=== PATIENT | male | born 1950 | race Caucasian/White ===

== ENCOUNTER 2018-03-12 11:47 | Day surgery (SDC) | payer MEDICARE ==
[~2018-03-12] VITALS: Ht 170.2 cm; Wt 73.9 kg
--- NOTE | ~2018-03-12 | OP ---
PATIENT NAME: BELLE MOTA MEDICAL RECORD: [id number] :52 LOCATION:D.OPS ADMISSION DATE: SURGEON: SUKHWINDER FOSTER MD DATE OF OPERATION: 03/12/2018 PREOPERATIVE DIAGNOSIS: A 5 cm rectal polyp of the rectum. POSTOPERATIVE DIAGNOSES: A 5 cm rectal polyp of the rectum with 2 additional polyps, both appeared to be adenomatous. One was located in the cecum and was 5 x 5 mm. The other was larger and was somewhat pedunculated and measured 1.8 cm. Severe left-sided diverticulosis. PROCEDURES: 1. Total colonoscopy to cecum. 2. Polypectomy utilizing the endoscopic mucosal resection technique (EMR) of the 5 cm polyp, which was located 10 cm from the anus. 3. Hot biopsy forceps polypectomies times 2. 4. Argon plasma coagulation therapy to the area around the polyp at 10 cm. 5. Placement of 3 endoscopic clips at the polypectomy site at 10 cm. SURGEON: Sukhwinder Foster MD CUSTOMER SUPPORT ENGINEER: None. BLOOD LOSS: Minimal. ANESTHESIA: General. COMPLICATIONS: None. The risks, possible complications and alternatives to procedure were explained to the patient. He elects to proceed. The discussion specifically included, but was not limited to, bleeding requiring emergency reoperation, infection, endoscopic perforation. OPERATIVE COURSE: The patient was conveyed to the operating room electively on 03/12/2018. General anesthesia was induced by the anesthesia staff. The patient was placed in the Lopez position. He was noted to have hypopigmentation of the anus and perineum as well as some degree of anal stenosis. A digital rectal examination was performed after he was placed in the Lopez position. A colonoscope was inserted through the anus. It was easily advanced to the cecum. It is likely due to the excellent prep, but I was able to identify 2 additional polyps. One was located in the cecum and it was removed utilizing the hot biopsy forceps polypectomy technique. I slowly withdrew the endoscope. The pullback was greater than 23-minute pullback. I dragged the folds. A combination of normal imaging and narrow band imaging were utilized. A secondary polyp was noted and it was removed utilizing the hot biopsy forceps polypectomy technique. In the rectum, I retroflexed. I then unretroflexed the scope. The pedunculated polyp 10 cm was noted. At the base of the polyp, I injected epinephrine for postprocedural hemostasis. I then injected 10 cc of Eleview through a sclerotherapy needle. I then advanced an endoscopic snare. The polyp was removed in a piecemeal fashion utilizing the snare twice. OPERATIVE REPORT [id number] SVETLANABELLE There was a tiny rim of residual polypoid tissue at the polypectomy site. This was ablated utilizing the argon plasma dietist utilizing the right colon setting in the forced mode. An endoscopic retrieval net was advanced and I was able to retrieve both portions of the polyp. I then readvanced the endoscope. As I had to go kind of deep in order to remove the polyp in its entirety, I wanted to reinforce the polypectomy site at 10 cm. I did this with the application of 3 endoscopic clips in a row. The endoscope was then withdrawn under direct vision. As the patient is going to be at risk for post-polypectomy syndrome, the patient will be dismissed home on Flagyl 500 mg #14, 1 p.o. q.12 hours. I will see the patient in my office in 2-3 weeks. TRANSINT:[id number] Voice Confirmation ID: [id number] DOCUMENT ID: [id number] SUKHWINDER FOSTER MD at 2121 CC: LUIS ENRIQUE FAITH KETCHER, BRENDA and ADRI BARRAGAN MD [id number] DICTATION DATE: 03/12/18 1446 TRANSFER WORKER: 03/12/18 1535 [facility] 03/12/18 [place] [id number] [place] [address]
[2018-03-12 09:32] LABS: HEMATOCRIT 47.3 % (42.0-54.0); HEMOGLOBIN 16.5 g/dL (13.5-17.5); MCH 32.4 pg (26.0-34.0); MCHC 34.9 g/dL (31.0-37.0); MCV 92.9 fL (80.0-100.0); MEAN PLATELET VOLUME 10.3 fL (7.4-10.4); RBC 5.09 10x6/uL (4.20-6.10); RDW 14.2 % (11.5-14.5); WBC 11.3 10x3/uL (4.8-10.8)
[2018-03-12 10:29] VITALS: BP 108/74; Ht 170.2 cm; Wt 73.9 kg
[~2018-03-12 11:47] MED LIST: CRESTOR40 MG PO; PRINIVIL20 MG PO; ZYLOPRIM300 MG PO
== END 2018-03-12 16:06 | disposition home or self-care (01) ==
LOC: D.OPS 11:47 → D.PAN 12:00 → D.OPS 16:06
PROVIDERS: Anesthesiology
DX: D37.5 Neoplasm of uncertain behavior of rectum (principal); D12.0 Benign neoplasm of cecum; D12.4 Benign neoplasm of descending colon; K57.30 Diverticulosis of large intestine without perforation or abscess without bleeding; Z01.812 Encounter for preprocedural laboratory examination

== ENCOUNTER → 2018-09-21 08:03 | Outpatient (CLI) | payer MEDICARE ==
[2018-03-12 10:29] VITALS: BMI 25.6
--- NOTE | 2018-09-28 14:26 | EC ---
PATIENT:BELLE MOTA DATE OF SERVICE: 09/21/18 SEX: M MEDICAL RECORD: [id number] DATE OF : 52 LOCATION:D.[facility] AGE OF PATIENT: 68 ADMISSION DATE: 09/21/18 REFERRING PHYSICIAN: INTERPRETING PHYSICIAN: ADRI BARRAGAN MD ECHOCARDIOGRAM REPORT ECHO CHARGES 4 ECHO COMPLETE Date: 09/21/18 CLINICAL DIAGNOSIS: MURMUR H/O CAD/CABG/HTN ECHOCARDIOGRAPHIC MEASUREMENTS (adult normal given) AC root (d.<3.7cm) 3.5 cm LV Septum d (<1.2 cm> 0.9 cm Valve Excursion 2.1 cm LV Septum (systole) 1.3 cm Left Atria (s.<4.0cm> 4.3 cm LVPW d(<1.2cm) 1.0 cm RV (d.<2.3cm) 2.6 cm LVPW (sytole) 1.2 cm LV diastole(<5.6CM) 3.5 cm MV E-F(>70mm/sec) cm LV systole 2.3 cm LVOT Diameter 1.9 cm MV exc.(>10mm) cm Est.ejection fraction (50-75%) % DOPPLER: LVIT cm/sec A 69.0 cm/sec E 50.0 cm/sec LA cm/sec RVSP 17.0 mmHg LVOT 106 cm/sec AOP1/2T m/s Asc. Ao 104 cm/sec RVOT 80.0 cm/sec RA cm/sec PA 100 cm/sec AV Gradient Peak 4.3 mmHg AV Mean 2.2 mmHg AV Area 2.8 cm MV Gradient Peak 3.0 mmHg MV Mean 1.2 mmHg MV Area cm COMMENTS: OP - HC Test Clerk: João LEE DEYSI Refinisher: 3 Dr. Wilkins TAPE# PACS Pericardial Effusion N DATE OF SERVICE: 09/21/2018 Adequate 2-D, color-flow and spectral Doppler, and M-mode. No LVH. LV internal dimension is normal. Wall motion is normal. EF is greater than or equal to 55%. Aortic valve sclerosis without stenosis by Doppler interrogation. The left atrium is mildly dilated at 4.3 cm. Mitral valve is thickened. Trace MR. Right-sided chamber is grossly normal. Trace TR. TRANSINT:[id number] Voice Confirmation ID: [id number] DOCUMENT ID: [id number] ECHOCARDIOGRAM REPORT [id number] BELLE MOTA,ADRI Auguste MD at 1426 CC: [id number] DICTATION DATE: 09/22/18 1259 AIRPLANE PILOT HELPER: 09/22/18 1429 DEP CLI 09/21/18 [place] [id number] [place] [id number]
== END | disposition home or self-care (01) ==
LOC: D.HCCARDIO 08:03
PROVIDERS: ATTEND Internal Medicine Interventional Cardiology
DX: R01.1 Cardiac murmur, unspecified (principal)

== ENCOUNTER 2019-03-15 05:39 | Outpatient (CLI) | payer MEDICARE ==
[~2019-03-15] VITALS: Ht 170.2 cm; Wt 74.1 kg
[2019-03-15 06:09] LABS: MCH 32.3 pg (26.0-34.0); MCHC 35.6 g/dL (31.0-37.0); MCV 90.9 fL (80.0-100.0); MEAN PLATELET VOLUME 11.6 fL (7.4-10.4); RBC 4.95 10x6/uL (4.20-6.10); RDW 14.4 % (11.5-14.5); WBC 9.4 10x3/uL (4.8-10.8)
[2019-03-15 07:31] VITALS: Ht 170.2 cm; Wt 74.1 kg
--- NOTE | 2019-03-15 14:32 | OP ---
PATIENT NAME: BELLE MOTA MEDICAL RECORD: [id number] :52 LOCATION:D.[facility] ADMISSION DATE: SURGEON: SUKHWINDER FOSTER MD DATE OF OPERATION: 03/15/2019 PREOPERATIVE DIAGNOSIS: History of multiple colorectal polyps including what was a 5-cm polyp within the rectum. POSTOPERATIVE DIAGNOSES: 1. History of multiple colorectal polyps including what was a 5-cm polyp within the rectum. No evidence of persistence or regrowth of the rectal polyp. 2. Minute polyps not worthy of biopsy, times 14. 3. Moderate pandiverticulosis. PROCEDURES: 1. Total colonoscopy to cecum. 2. Ablation of colorectal polyps times 14 with the argon plasma group exercise instructor. The risks, possible complications, and alternatives to the procedure were explained to the patient. He elects to proceed. Discussion specifically included, but was not limited to, bleeding requiring emergency reoperation, infection, endoscopic perforation as well as a possible need for additional operative procedure or procedures. ENDOSCOPIC COURSE: The patient was conveyed to the endoscopy suite electively on 03/15/2019. IV sedation was induced by anesthesia staff. The patient was placed in the Lopez position. A digital rectal examination was performed. It revealed a prostate that was small and without nodules, but firm. A colonoscope was inserted through the anus. It was easily advanced to the cecum. The prep was adequate. I slowly withdrew the endoscope. I dragged the folds. The pullback was greater than a 13-minute pullback. A combination of normal imaging and narrow band imaging were utilized. Fourteen minute polyps, which were all sessile polyps, less than 5 mm were ablated with the argon plasma group exercise instructor in the right colon setting and the forced mode. I found no polyps that were worthy of a hot biopsy forceps polypectomy. There was 1 small submucosal lipoma in the ascending colon. A retroflexed view was obtained in the rectum, which revealed enlarged internal hemorrhoids. I then unretroflexed the scope and removed it under direct vision. I will see the patient on a p.r.n. basis. I will plan for his next colonoscopy to take place in the GI lab in 3 years. TRANSINT:[id number] Voice Confirmation ID: [id number] DOCUMENT ID: [id number] SUKHWINDER FOSTER MD at 1432 CC: LUIS ENRIQUE FAITH KETCHER, BRENDA and ADRI BARRAGAN MD [id number] DICTATION DATE: 03/15/19 0958 TEAM FACILITATOR: 03/15/19 1056 [facility] 03/15/19 [place] [id number] [facility] [place] [address]
--- NOTE | 2019-03-17 11:31 | HP ---
PATIENT: BELLE MOTA MEDICAL RECORD: [id number] ACCOUNT: [id number] LOCATION:[facility] : 52 ADMISSION DATE: 03/15/19 PCP: LUIS ENRIQUE FAITH HISTORY AND PHYSICAL EXAMINATION HISTORY OF PRESENT ILLNESS: The patient had a number of colorectal polyps. He had a colon polyp at 65 cm. It was a tubular adenoma. He has a cecal polyp, which was a tubular adenoma at 10 cm, a much larger polyp and the margins were difficult to evaluate for dysplastic changes. This was a tubulovillous adenomata. I have reviewed his procedure note from last year. He had a 5 cm rectal polyp in the rectum with 2 additional polyps, one was located in the cecum and was a small polyp 5 x 5 mm, the other was larger and somewhat pedunculated it measured 1.8 cm. The polyp at 10 cm had to be clipped for hemostasis. The risks, possible complications and alternatives to the procedure were explained to the patient. HOME MEDICATIONS: Please see the nursing list. ALLERGIES: No known drug allergies. SOCIAL HISTORY: Nonsmoker. PAST MEDICAL AND SURGICAL HISTORY: Coronary artery disease, hypertension, history of CABG times 3, history of colon polyps. REVIEW OF SYSTEMS: Negative for CVA or seizures. Negative for diabetes or thyroid problems. PHYSICAL EXAMINATION: GENERAL: The patient does not appear acutely ill. He does not appear chronically ill. VITAL SIGNS: Reviewed. EARS: External ears appear normal. EYES: Extraocular movements intact. NECK: Trachea midline. CHEST: No intercostal retractions. PULMONARY: Nonlabored, no stridor. IMPRESSION: History of colorectal polyps. PLAN: Colonoscopy, possible EMR, possible APC. TRANSINT:[id number] Voice Confirmation ID: [id number] DOCUMENT ID: [id number] 03/17/2019 Edited for group account director error,dmm. HISTORY AND PHYSICAL [id number] SVETLANASUKHWINDER FORRESTER MD at 1131 CC: LUIS ENRIQUE FAITH KETCHER, BRENDA and ADRI BARRAGAN MD [id number] DICTATION DATE: 03/15/19910 GLASS CARRIER: 03/15/19 1048 DEP CLI 03/15/19 [place] [address]
== END 2019-03-15 10:51 | disposition home or self-care (01) ==
LOC: D.OPS 05:39 → EDSTATUS 09:00 → D.OPS 09:00
PROVIDERS: Anesthesiology; ATTEND Surgery
DX: K63.5 Polyp of colon (principal); K57.30 Diverticulosis of large intestine without perforation or abscess without bleeding; D17.5 Benign lipomatous neoplasm of intra-abdominal organs; Z86.010 Personal history of colon polyps; Z01.812 Encounter for preprocedural laboratory examination

== ENCOUNTER 2019-03-16 08:48 | Inpatient (IN) | payer MEDICARE ==
[~2019-03-16] VITALS: Ht 170.2 cm; Wt 79.1 kg
[2019-03-16 09:23] LABS: HEMATOCRIT 48.6 % (42.0-54.0); HEMOGLOBIN 16.5 g/dL (13.5-17.5); LYMPHOCYTES 13.3 % (15-50); MCH 31.8 pg (26.0-34.0); MCV 93.6 fL (80.0-100.0); MEAN PLATELET VOLUME 11.2 fL (7.4-10.4); NEUTROPHILS 81.8 % (40-80); PLATELET COUNT 234 10x3/uL (130-400); RBC 5.19 10x6/uL (4.20-6.10); RDW 14.4 % (11.5-14.5); WBC 15.4 10x3/uL (4.8-10.8)
[2019-03-16 09:32] LABS: ALBUMIN 3.7 g/dL (3.4-5.0); ALKALINE PHOSPHATASE 79 U/L (46-116); ALT (SGPT) 37 U/L (10-68); BILIRUBIN - TOTAL 1.34 mg/dL (0.2-1.3); CALC OSMOLALITY 282 mosm/kg (275-300); CALCIUM 9.2 mg/dL (8.5-10.1); CARBON DIOXIDE 23.9 mmol/L (21.0-32.0); CHLORIDE - SERUM 101 mmol/L (98-107); CREATININE - SERUM 1.4 mg/dL (0.6-1.3); GLUCOSE 180 mg/dL (74-106); POTASSIUM - SERUM 4.1 mmol/L (3.5-5.1); PROTEIN - SERUM 7.9 g/dL (6.4-8.2); SODIUM 138 mmol/L (136-145); UREA NITROGEN 17 mg/dL (7-18); eGFR NON AFRICAN AMERICAN 54 mL/min (90-120)
[2019-03-16 09:35] LABS: AMYLASE - SERUM 42 U/L (25-115); LIPASE 200 U/L (73-393); TROPONIN-I < 0.017 ng/mL (0.000-0.060)
--- NOTE | 2019-03-16 12:29 | NUR ---
MERRUM INFUSION COMPLETE 1214PM
[2019-03-16 13:19] LABS: APPEARANCE HAZY (CLEAR); BILIRUBIN NEGATIVE (NEGATIVE); COLOR YELLOW (YELLOW); EPITHELIAL CELLS 0-5 /hpf (0-5); GLUCOSE 50 mg/dL (NEGATIVE); KETONE MODERATE mg/dL (NEGATIVE); MUCUS <1+ /lpf (NONE SEEN); PROTEIN TRACE mg/dL (NEGATIVE); RED CELLS - URINE 0-5 /hpf (0-5); SPECIFIC GRAVITY 1.015 (1.005-1.020)
[2019-03-16 14:54] VITALS: BP 106/71; BMI 25.6
[2019-03-16 16:51] VITALS: BP 102/68
--- NOTE | 2019-03-16 20:00 | NUR ---
A/O WITH NO SIGNS OF ACUTE DISTRESS NOTED. IV TO THE LT AC WITH NO SWELLING OR REDNESS NOTED. COMPLAINING OF ACID REFLUX AND SHARP PAIN TO THE RLQ BUT DENIES PAIN MEDS. DENIES OTHER NEEDS AT THIS TIME. CONTINUE WITH PLAN OF CARE.
[2019-03-17 01:03] VITALS: BP 97/63
[2019-03-17 04:57] LABS: BASOPHILS 0 % (0-2); EOSINOPHILS 0 % (0-7); IMMATURE GRANULOCYTES 0.1 % (0-5); LYMPHOCYTES 6.3 % (15-50); MCH 31.5 pg (26.0-34.0); MCHC 34.6 g/dL (31.0-37.0); MEAN PLATELET VOLUME 11.5 fL (7.4-10.4); MONOCYTES 4.4 % (2-11); NEUTROPHILS 89.2 % (40-80); RDW 14.2 % (11.5-14.5); WBC 11.6 10x3/uL (4.8-10.8)
[2019-03-17 04:59] VITALS: BP 93/60
[2019-03-17 04:59] LABS: HEMATOCRIT 37.3 % (42.0-54.0); HEMOGLOBIN 12.9 g/dL (13.5-17.5); MCV 91.2 fL (80.0-100.0); PLATELET COUNT 148 10x3/uL (130-400); RBC 4.09 10x6/uL (4.20-6.10)
[2019-03-17 05:18] LABS: ALKALINE PHOSPHATASE 44 U/L (46-116); ALT (SGPT) 23 U/L (10-68); CALC OSMOLALITY 282 mosm/kg (275-300); CALCIUM 7.5 mg/dL (8.5-10.1); CARBON DIOXIDE 21.2 mmol/L (21.0-32.0); CHLORIDE - SERUM 107 mmol/L (98-107); CREATININE - SERUM 1.2 mg/dL (0.6-1.3); GLUCOSE 99 mg/dL (74-106); MAGNESIUM - SERUM 1.4 mg/dL (1.8-2.4); PHOSPHOROUS 2.7 mg/dL (2.5-4.9); POTASSIUM - SERUM 4.1 mmol/L (3.5-5.1); PROTEIN - SERUM 5.6 g/dL (6.4-8.2); SODIUM 141 mmol/L (136-145); UREA NITROGEN 18 mg/dL (7-18); eGFR NON AFRICAN AMERICAN 64 mL/min (90-120)
[2019-03-17 05:19] LABS: ALBUMIN 2.6 g/dL (3.4-5.0); TROPONIN-I < 0.017 ng/mL (0.000-0.060)
--- NOTE | 2019-03-17 07:30 | NUR ---
PATIENT REPORT RECIEVED ASSUMED CARE. PATIENT IN BED WITH EYES CLOSED RESTING QUIETLY. CALL LIGHT WITHIN REACH.
--- NOTE | 2019-03-17 08:30 | NUR ---
PATIENT SITTING UP IN BED WITH IV INTACT. NO COMPLAINTS OR SIGNS OF DISTRESS. CALL LIGHT WITHIN REACH.
[2019-03-17 09:26] VITALS: BP 110/69
--- NOTE | 2019-03-17 12:17 | NUR ---
PATIENT RECIEVED MEDS AND PAIN MED AT THIS TIME. STATED IV HAS BEEN GOING OFF FOR 1 HOUR AND 15 MINUTES. ASKED PATIENT IF HE HAD PUSHED HIS CALL LIGHT. STATED HE HAD IT ON FOR 1 HOUR AND 15 MINUTES. ASKED HIM IF ANYONE HAD ANSWERED IT. STATED COURSE DEVELOPER HAD 5 MINUTES AGO. EXPLAINED TO FEDE AT THAT TIME I WAS WITH MY SURGERY PATIENT AND RESTARTING ANY IV. NO RESPONSE AFTER THAT. EXPLAINED TO PATIENT THAT I WAS WITH ANOTHER PATIENT AND THAT I CAME SOON I WAS ABLE. VERBALIZED UNDERSTANDING. GAVE PAIN MEDS AND FIXED IVF. SPOKE WITH FEDE ABOUT THE PATIENT CALLING. SHE SAID HE HAD NEVER PUSHED THE LIGHT, THAT SHE HAD WENT IN AND CHECKED ON HIM AT THIS TIME FOR VS.
[2019-03-17 12:48] VITALS: BP 127/79
[2019-03-17 12:51] VITALS: Ht 170.2 cm; Wt 79.1 kg
--- NOTE | 2019-03-17 15:50 | NUR ---
PATIENT IN BED WITH IV INTACT. NO COMPLAINTS. CALL LIGHT WITHIN REACH. FAMILY AT BEDSIDE.
[2019-03-17 16:29] VITALS: BP 104/63
--- NOTE | 2019-03-17 16:51 | MORECARE ---
CASE MANAGEMENT DISCHARGE SUMMARY PATIENT: BELLE TENORIO UNIT: [id number] ADM DATE: 03/16/19 AGE: 68 : 51 SEX: M ROOM/BED: D.2226 AUTHOR: KAYLA FINCH PHYSICIAN: REFERRING PHYSICIAN: SUKHWINDER FOSTER MD DATE OF SERVICE: 03/17/19 Discharge Plan Patient Name: BELLE TENORIO Facility: [facility]:[place] : 1950 Planned Disposition: Home Anticipated Discharge Date: Discharge Date: Expected LOS: Initial Reviewer: [email or web address] Initial Review Date: 03/17/2019 Generated: 03/17/19 5:50 pm Comments DCP- Discharge Planning Updated by [email or web address]: Thu Al on 03/17/19 3:[address] Patient Name: BELLE TENORIO Admission Status: ER Accout number: [id number] Admission Date: 03-16-2019 : 1950 Admission Diagnosis: Attending: SUKHWINDER FOSTER Current LOS: 1 Anticipated DC Date: Planned Disposition: Home Primary Insurance: MEDICARE A & B Discharge Planning Comments: CM met with patient at bedside after explaining CM role and obtaining verbal consent. CM discussed availability / needs of home health and medical equipment. Patient denies any discharge needs at this time. CM TO FOLLOW AND ASSIST. Steam Box Hand: Thu Al DCP- Discharge Planning Updated by [email or web address]: Alma Ku on 03/16/19 11:[address] CM met with patient for DC planning needs. CM explained the purpose of interview, patient gives permission for spouse to speak with me Patient states he lives with his , Shellie Tenorio @[address] [place] [address]. Patient states he is independent with his care. PCP: Dr. Mara Weldon. [facility] DME: None. Emergency contact: Shellie Tenorio () [phone]. Community Resources: None. States he will not require additional services at this time. He feels safe discharging to his home. Denies being admitted to a hospital within past 30 days. Transportation at discharge will be patient's , Shellie #[phone]. CM will follow and assist with DC needs PRN. DCPIA - Discharge Planning Initial Assessment Updated by [email or web address]: Thu Al on 03/17/19 4:43 pm * Is the patient Alert and Oriented? Yes * PCP LAURYN * Pharmacy [facility] * Preadmission Environment Home with Family * ADLs Independent * Equipment None * Community resources currently utilized None * Additional services required to return to the preadmission environment? No * Can the patient safely return to the preadmission environment? Yes * Has this patient been hospitalized within the prior 30 days at any hospital? No Coverage Notice Reviewer: [id number] Moshe Ku Notice Issued Date-Time: 03/16/2019 11:25 Notice Type: Medicare Outpatient Observation Notice Notice Delivered To: Family Member Relationship to Patient: Spouse [employer] Academic Coach Name: Shellie Tenorio Delivery Method: HAND - Hand Delivered Nohemi Days: Prior Verbal Notification: Recipient Understood Notice: Recipient Signature: Med Rec Note Co-signed by Attending: Coverage Notice Comment: Patient request sign for him. Patient Name: BELLE TENORIO Page [id number] at 1651 All edits/amendments must be made on the electronic document DICTATION DATE: 03/17/191649 SUSHI CHEF: ARIA 03/17/191649 RPT#: [id number] DC DATE: STATUS: ADM IN [facility] [address] [place] [address] END OF REPORT
--- NOTE | 2019-03-17 17:03 | NUR ---
PATIENT SITTING UP IN BED AT THIS TIME. IV INTACT. MEDS GIVEN. FAMILY AT BEDSIDE. CALL LIGHT WITHIN REACH.
--- NOTE | 2019-03-17 17:06 | NUR ---
PATIENT IN BED WITH IV INTACT. NO COMPLAINTS OR SIGNS OF DISTRESS. RECIEVED SCHEDULED MEDS. FAMILY AT BEDSIDE. CALL LIGHT WITHIN REACH.
--- NOTE | 2019-03-17 18:50 | NUR ---
GAVE BEDSIDE REPORT TO NIGHT NURSE AT THIS TIME. PATIENT DENIES ANY NEEDS. IV INTACT. CALL LIGHT WITHIN REACH.
--- NOTE | 2019-03-17 20:00 | NUR ---
A/O WITH NO SIGNS OF ACUTES DISTRESS. IV TO THE LT AC WITH NO SWELLING OR REDNESS NOTED AT SITE. TEMP @100.3, GAVE IS AND WILL CONTINUE TO MONTIOR. DENIES NEEDS AT THIS TIME. COTNINUE WITH PLAN OF CARE.
[2019-03-17 20:58] VITALS: BP 121/72
[2019-03-18 01:31] VITALS: BP 138/77
[2019-03-18 05:54] VITALS: BP 124/71
[2019-03-18 06:04] LABS: BASOPHILS 0.2 % (0-2); EOSINOPHILS 0.1 % (0-7); HEMATOCRIT 36.1 % (42.0-54.0); HEMOGLOBIN 12.4 g/dL (13.5-17.5); IMMATURE GRANULOCYTES 0.4 % (0-5); MCH 31.4 pg (26.0-34.0); MCHC 34.3 g/dL (31.0-37.0); MCV 91.4 fL (80.0-100.0); MONOCYTES 6.2 % (2-11); NEUTROPHILS 84.1 % (40-80); PLATELET COUNT 136 10x3/uL (130-400); RBC 3.95 10x6/uL (4.20-6.10); RDW 14.1 % (11.5-14.5); WBC 10.3 10x3/uL (4.8-10.8)
[2019-03-18 06:37] LABS: ALBUMIN 2.3 g/dL (3.4-5.0); ALKALINE PHOSPHATASE 48 U/L (46-116); ALT (SGPT) 18 U/L (10-68); BILIRUBIN - TOTAL 1.08 mg/dL (0.2-1.3); CALCIUM 7.7 mg/dL (8.5-10.1); CARBON DIOXIDE 26.2 mmol/L (21.0-32.0); CHLORIDE - SERUM 106 mmol/L (98-107); GLUCOSE 93 mg/dL (74-106); MAGNESIUM - SERUM 1.5 mg/dL (1.8-2.4); PROTEIN - SERUM 5.2 g/dL (6.4-8.2); SODIUM 139 mmol/L (136-145); eGFR NON AFRICAN AMERICAN 79 mL/min (90-120)
[2019-03-18 06:46] LABS: CALC OSMOLALITY 277 mosm/kg (275-300); PHOSPHOROUS 1.8 mg/dL (2.5-4.9); POTASSIUM - SERUM 3.3 mmol/L (3.5-5.1); UREA NITROGEN 12 mg/dL (7-18)
--- NOTE | 2019-03-18 08:00 | NUR ---
PATIENT IN BED WITH NO COMPLAINTS OR SIGNS OF DISTRESS AT THIS TIME FAMILY AT BEDSIDE. CALL LIGHT WITHIN REACH.
--- NOTE | 2019-03-18 09:15 | NUR ---
PATIENT UP TO SHOWER AT THIS TIME WITH ASSISTANCE BY AND SACK FILLER.
[2019-03-18 09:28] VITALS: BP 142/82
[2019-03-18 12:32] VITALS: BP 134/79
--- NOTE | 2019-03-18 13:00 | NUR ---
PATIENT IN BED WITH IV INTACT. NO COMPLAINTS OR SIGNS OF DISTRESS. FAMILY AT BEDSIDE. CALL LIGHT WITHIN REACH.
--- NOTE | 2019-03-18 16:30 | NUR ---
PATIENT IN BED WITH NO COMPLAINTS. IV INTACT. FAMILY AT BEDSIDE. CALL LIGHT ITHIN REACH.
[2019-03-18 16:52] VITALS: BP 132/74
--- NOTE | 2019-03-18 18:15 | NUR ---
PATIENT IN BED WITH NO COMPLAINTS OR SIGNS OF DISTRESS. IV INTACT. FAMILY AT BEDSIDE. CALL LIGHT WITHIN REACH.
[2019-03-18 20:10] VITALS: BP 130/81
--- NOTE | 2019-03-18 21:48 | NUR ---
PT C/O LOWER ABDOMINAL PAIN 03/08. GAVE 1 TAB NORCO-5 PO. GAVE SCHEDULED MEDS. NO OTHER NEEDS. COMPLETE ASSESSMENT PER FLOW-SHEET. WILL CONTINUE TO MONITOR.
[2019-03-19 01:22] VITALS: BP 130/81; BP 144/84
[2019-03-19 04:59] VITALS: BP 135/82
--- NOTE | 2019-03-19 09:25 | NUR ---
PT ALERT X 4. BREATH SOUNDS CLEAR BILAT. BOWEL SOUNDS HYPOACTIVE X 4. IV TO LEFT AC, PATENT, DRESSING CDI. PT REPORTING PAIN OF 8/10, MEDICATED PER ORDERS, WILL MONITOR. ABDOMEN DISTENDED AND FIRM, TENDER TO ALL [place]. BED LOW, CALL LIGHT IN REACH. NO OTHER NEEDS AT THIS TIME.
[2019-03-19 13:25] VITALS: BP 138/87
[2019-03-19 17:19] VITALS: BP 149/88
[2019-03-19 20:40] VITALS: BP 150/80
[2019-03-20] VITALS (21 sets, daily range): BP systolic 138–166; BP diastolic 85–105
[2019-03-20 06:31] LABS: BASOPHILS 0.1 % (0-2); EOSINOPHILS 2.9 % (0-7); HEMATOCRIT 37.8 % (42.0-54.0); HEMOGLOBIN 13.5 g/dL (13.5-17.5); IMMATURE GRANULOCYTES 1.9 % (0-5); LYMPHOCYTES 13.9 % (15-50); MCH 31.4 pg (26.0-34.0); MCHC 35.7 g/dL (31.0-37.0); MCV 87.9 fL (80.0-100.0); MEAN PLATELET VOLUME 10.7 fL (7.4-10.4); MONOCYTES 12.9 % (2-11); NEUTROPHILS 68.3 % (40-80); RDW 13.7 % (11.5-14.5)
[2019-03-20 06:32] LABS: PLATELET COUNT 182 10x3/uL (130-400)
[2019-03-20 06:59] LABS: INR 1.1 (0.85-1.17); PROTIME 13.7 SECONDS (11.6-15.0)
[2019-03-20 07:32] LABS: ALBUMIN 2.2 g/dL (3.4-5.0); ALKALINE PHOSPHATASE 59 U/L (46-116); ALT (SGPT) 18 U/L (10-68); BILIRUBIN - TOTAL 1.16 mg/dL (0.2-1.3); CALC OSMOLALITY 276 mosm/kg (275-300); CALCIUM 8.1 mg/dL (8.5-10.1); CARBON DIOXIDE 22.6 mmol/L (21.0-32.0); CHLORIDE - SERUM 106 mmol/L (98-107); CREATININE - SERUM 0.9 mg/dL (0.6-1.3); GLUCOSE 87 mg/dL (74-106); MAGNESIUM - SERUM 1.8 mg/dL (1.8-2.4); PHOSPHOROUS 1.8 mg/dL (2.5-4.9); POTASSIUM - SERUM 3.1 mmol/L (3.5-5.1); PROTEIN - SERUM 6.4 g/dL (6.4-8.2); SODIUM 140 mmol/L (136-145); UREA NITROGEN 11 mg/dL (7-18); eGFR NON AFRICAN AMERICAN 89 mL/min (90-120)
--- NOTE | 2019-03-20 11:38 | NUR ---
REC'D PT TO ICU, VSS, ABD INCISIONS CDI AND CANDICE BULB CHARGED. STEEL ANALYST MS SET UP AND TAUGHT, BROUGHT BACK INTO DEPT FOR VISITING AND ORIENTATION OF DEPT VISITING HRS. ALL MONITORING EQUIPMENT ATTACHED AND ALARMS SET.
--- NOTE | 2019-03-20 14:45 | NUR ---
NUTRTIION CONSULT SPOKE WITH BRITNEY RN, RECEIVED ORDER TO RUN TPN. PER WEEKEND PROTOCOL PROCALAMINE STARTED AT 50 CC/HR. PER RN REPORT IV FLUIDS TO DECREASE TO 75 CC/HR WHEN PROCALAMINE STARTS. RD FOLLOWING
--- NOTE | 2019-03-20 19:00 | NUR ---
RECEIVED REPORT. PATIENT RECEIVED IN BED, AWAKE ALERT AND ORIENTED X 4. SPEECH CLEAR. PATIENT CONNECTED TO MONITOR WITH ALARMS SET. VSS. SHIFT ASSESSMENT COMPLETED PER FLOW SHEET WITH NO ACUTE DISTRESS OBSERVED. CALL LIGHT IN REACH AND ABLE TO UTILIZE TO MAKE NEEDS KNOWN.
--- NOTE | 2019-03-20 21:00 | NUR ---
AWAKE AND ALERT. VSS
--- NOTE | 2019-03-20 23:00 | NUR ---
RESTING WITH EYES CLOSED, ROUSES EASILY. VSS. REASSESSMENT COMPLETED PER FLOW SHEET WITH NO CHANGES OR ACUTE DISTRESS OBSERVED.
[2019-03-21] VITALS (18 sets, daily range): BP systolic 142–167; BP diastolic 80–121
--- NOTE | 2019-03-21 01:00 | NUR ---
RESTING WITH EYES CLOSED, EASILY ROUSED AND ALERT. VSS
--- NOTE | 2019-03-21 03:00 | NUR ---
RESTING WITH EYES CLOSED, EASILY ROUSED AND ALERT. VSS. REASSESSMENT COMPLETED PER FLOW SHEET WITH NO CHANGES OR ACUTE DISTRESS OBSERVED. CALL LIGHT IN REACH
--- NOTE | 2019-03-21 05:00 | NUR ---
AWAKE AND ALERT. VSS. AM LABS DRAWN FROM CVL
[2019-03-21 05:40] LABS: BASOPHILS 0.2 % (0-2); EOSINOPHILS 0.2 % (0-7); HEMATOCRIT 34.4 % (42.0-54.0); HEMOGLOBIN 12.3 g/dL (13.5-17.5); IMMATURE GRANULOCYTES 1.9 % (0-5); LYMPHOCYTES 12.6 % (15-50); MCH 31.6 pg (26.0-34.0); MCHC 35.8 g/dL (31.0-37.0); MCV 88.4 fL (80.0-100.0); MEAN PLATELET VOLUME 10.5 fL (7.4-10.4); MONOCYTES 12.6 % (2-11); NEUTROPHILS 72.5 % (40-80); PLATELET COUNT 198 10x3/uL (130-400); RBC 3.89 10x6/uL (4.20-6.10); RDW 13.7 % (11.5-14.5); WBC 10.5 10x3/uL (4.8-10.8)
[2019-03-21 06:12] LABS: ALBUMIN 2.1 g/dL (3.4-5.0); ALKALINE PHOSPHATASE 56 U/L (46-116); ALT (SGPT) 15 U/L (10-68); BILIRUBIN - TOTAL 0.66 mg/dL (0.2-1.3); CALC OSMOLALITY 282 mosm/kg (275-300); CALCIUM 8.2 mg/dL (8.5-10.1); CARBON DIOXIDE 23.6 mmol/L (21.0-32.0); CHLORIDE - SERUM 107 mmol/L (98-107); CREATININE - SERUM 0.8 mg/dL (0.6-1.3); GLUCOSE 109 mg/dL (74-106); MAGNESIUM - SERUM 2.1 mg/dL (1.8-2.4); POTASSIUM - SERUM 3.4 mmol/L (3.5-5.1); SODIUM 141 mmol/L (136-145); TROPONIN-I < 0.017 ng/mL (0.000-0.060); eGFR NON AFRICAN AMERICAN > 90 mL/min (90-120)
[2019-03-21 06:16] LABS: PHOSPHOROUS 2.5 mg/dL (2.5-4.9); UREA NITROGEN 15 mg/dL (7-18)
--- NOTE | 2019-03-21 07:00 | NUR ---
PATIENT IS ALERT AND ORIENTED. NO COMPLAINTS. SHIFT ASSESSMENT DONE. HOB 45. PROCAL. FLUIDS. NO DISTRESS. NO PAIN. WATER AT BEDSIDE. TOLERATING WELL. HYPO BS. CVL DRESSIGN CHANGE DONE AT THIS TIME. WILL CONTINUE TO MONITOR.
--- NOTE | 2019-03-21 09:00 | NUR ---
PATIENT STATED HE WANTED FOOD. EDUCATED HIM ON WHY WE CAN NO DO SOLIDS AND THE REASON FOR BEING CLEAR LIQUID. REMINDED PATIENT HE IS ON PROCAL AND WILL BE ON TPN SOON. EDUCATED ON FINGER STICKS WHEN TPN IS STARTED. DENIES PAIN. ALERT AND ORIENTED. TURNS HIMSELF. STATED HE FELT GOOD. VSS
--- NOTE | 2019-03-21 09:20 | NUR ---
Nutrition consult for TPN: ProcalAmine PPN started @ 50 ml/hr per protocol on Thursday. Chart and labs reviewed Pt ss/p bowel resection 2/2 perforation TPN ordered @ 40 ml/hr and ProcalAmine PPN will be stopped. Thank you for the consult. RDN following.
--- NOTE | 2019-03-21 11:52 | NUR ---
called dr preston to confirm tpn order and clear liquid diet. he stated that is still the plan and stated to transfer to the floor.
--- NOTE | 2019-03-21 13:41 | NUR ---
PATIENT RESTING. WAS ON PHONE WITH FAMILY EARLIER. AWAITING TRANSFER. DENIES NEEDS. TOLERATING CLEAR LIQUID DIET. AWAITING TPN. NO PAIN STATED BY PATIENT. ALERT AND ORIENTED. PATIENT TURNS HIMSELF. ORAL CARE DONE AT THIS TIME. ALL LINES CAPPED AND LABELED. WILL CONTINUE TO MONITOR.
--- NOTE | 2019-03-21 15:00 | NUR ---
VSS. STATES NORCO HELPED WITH PAIN. SLEEPY EASILY AROUSES. CHG BATH AND LINEN CHANGE.
--- NOTE | 2019-03-21 17:23 | NUR ---
FAMILY AT BEDSIDE. PATIENT WATCHING TV. DENIES PAIN AT THIS TIME NO NEEDS. TPN STARTED. LIPIDS STARTED. I AND O DONE. WILL CONTINUE TO MONITOR. ALERT AND ORIENTED. HOB 45. CANDICE DRAIN CDI BILAT. PULSES PALP BILAT UPPER AND LOWER. HYPO X4. TENDER ABDOMEN. NO BM. SKIN WNL.
--- NOTE | 2019-03-21 19:00 | NUR ---
PT AAOX4, PT ASSESSMENT COMPLETED AT THIS TIME, VSS, NO CHANGES NOTED FROM NURSE REPORT, WILL CONT TO MONITOR FOR CHANGES
--- NOTE | 2019-03-21 21:43 | NUR ---
PT GIVEN 2100 MEDS, PT ADVISED THAT HE DID NOT NEED ANYTHING FURTHER AT THIS TIME. WILL MONITOR FOR CHANGES
--- NOTE | 2019-03-21 23:00 | NUR ---
PT RESTING WITH EYES CLOSED, RESP EVEN NON LABORED, NO DISTRESS NIOTED. WILL MONITOR FOR CHANGES IN PT COND.
--- NOTE | 2019-03-22 01:00 | NUR ---
PT RESTING WITH EYES CLOSED, RESP EVEN NON LABORED, NO DISTRESS NOTED, WILL CONT TO MONITOR
[2019-03-22 03:00] VITALS: BP 139/102
--- NOTE | 2019-03-22 03:00 | NUR ---
PT RESTING WITH EYES CLOSED, RESP EVEN NON LABORED, NO DISTRES NOTED. WILL CONT. TO MONITOR FOR CHANGES.
[2019-03-22 04:59] LABS: MAGNESIUM - SERUM 1.9 mg/dL (1.8-2.4); PHOSPHOROUS 2.2 mg/dL (2.5-4.9)
[2019-03-22 05:00] VITALS: BP 168/91
--- NOTE | 2019-03-22 05:18 | NUR ---
PT RESTING WITH EYES CLOSED NO CHANGES NOTED, RESP EVEN AND REG. WILL CONT TO MONITOR.
[2019-03-22 09:00] VITALS: BP 138/87
[2019-03-22 09:29] LABS: CALC OSMOLALITY 282 mosm/kg (275-300); CALCIUM 7.9 mg/dL (8.5-10.1); CARBON DIOXIDE 23.8 mmol/L (21.0-32.0); CHLORIDE - SERUM 107 mmol/L (98-107); CREATININE - SERUM 0.9 mg/dL (0.6-1.3); GLUCOSE 177 mg/dL (74-106); SODIUM 140 mmol/L (136-145); UREA NITROGEN 13 mg/dL (7-18); eGFR NON AFRICAN AMERICAN 89 mL/min (90-120)
[2019-03-22 09:30] LABS: POTASSIUM - SERUM 2.9 mmol/L (3.5-5.1)
--- NOTE | 2019-03-22 09:32 | NUR ---
Nutrition follow-up: Clear liquid diet and pt tolerating per nursing TPN @ 40 ml/hr; lipids 20% 250 ml Q 48 hr Labs reviewed; PO4, K low; Mg low normal Wt: 174# ProcalAmine discontinued RDN will adjust TPN formula Following.
[2019-03-22 11:00] VITALS: BP 157/97
--- NOTE | 2019-03-22 11:00 | NUR ---
CALLED REPORT TO VICENTA ARTEAGA. DELMER CUEVAS'D PATIENT URINATED AND HAD BM. 1800 OF DELMER
--- NOTE | 2019-03-22 11:14 | NUR ---
1114-RECEIVED TO ROOM VIA WHEELCHAIR TO ROOM WITH RIGHT IJ CVL SEEN, DRESSING C/D/I. TPN, PHOS, AND NS INFUING WITHOUT PROBLEMS. STERI STRIPS SEEN TO UMBILICAL AREA. BILATERAL CANDICE DRAINS SEEN, COMPRESSED WITH SERIOSANGIOUS DRAINAGE. LEFT AND RIGHT SIDE OF ABDOMINAL AREA. GLASSES ON. DENIES NEEDS AT THIS TIME. NO DATE TO DRESSINGS ON ABDOMEN. 1143-DRESSING REMOVED TO ABDOMINAL AREA, STICTCHES SEEN TO BOTH CANDICE DRAINS. REDRESSED WITH SPLIT GUAZE AND COVERED WITH MEDIPORE TAPE, DATED.
[2019-03-22 16:13] VITALS: BP 170/93
--- NOTE | 2019-03-22 16:40 | NUR ---
AT BEDSDIE, PATIENT DENIES NEEDS AT THIS TIME.
--- NOTE | 2019-03-22 17:04 | OP ---
PATIENT NAME: BELLE MOTA MEDICAL RECORD: [id number] :52 LOCATION:D. D.1202 ADMISSION DATE:03/16/19 SURGEON: SUKHWINDER FOSTER MD DATE OF OPERATION: 03/20/2019 PREOPERATIVE DIAGNOSES: 1. Pneumoperitoneum. 2. Probable diverticulitis with perforation near the splenic flexure. 3. Acute malnutrition, in need of TPN. POSTOPERATIVE DIAGNOSES: 1. Pneumoperitoneum. 2. Probably a perforated diverticulum near the splenic flexure. 3. Acute malnutrition, in need of TPN. PROCEDURES: 1. Laparoscopic lavage and placement of drains. 2. Right internal jugular triple lumen central venous catheter. DRAINS: 19-Sami fully fluted closed system drains times 2. The risks, possible complications and alternatives to the procedure were explained to the patient and his . They elected to proceed. OPERATIVE FINDINGS: There was some turbid fluid down in the pelvis. It appears that the omentum has patched the perforation near the splenic flexure. Due to the fact that the colonoscopy was very easy, the patient had lots of diverticular disease and there were no inflammatory changes on the initial CT scan, but there was fluid in the pelvis. I believe that the pneumatic pressure of the colonoscopy caused one of the diverticula to perforate and that the fluid down the pelvis was irrigation from the colonoscopy. The indication for placement of the central venous line was because the patient will need TPN postoperatively. OPERATIVE COURSE: The patient was conveyed to the operating room electively on 03/20/2019. General anesthesia was induced by the anesthesia staff. The patient was positioned in the Trendelenburg position. The right neck was sterilely prepped and draped. I percutaneously accessed the right internal jugular vein in an antegrade fashion easily. A guidewire passed easily. A small skin rocío was accomplished. A vessel dilator was used to dilate a subcutaneous tract. A 16-cm triple lumen central venous catheter was inserted to the hub. It was sutured in place times 3. All lumens flushed easily and aspirated dark, nonpulsatile blood. A chest x-ray will be obtained postoperatively. The abdomen was then sterilely prepped and draped. A small skin rocío was accomplished in the left upper quadrant. The Veress needle was inserted through the skin rocío into the peritoneal cavity. CO2 insufflation was begun. Once a sufficient pneumoperitoneum had been achieved, a 5-mm trocar was inserted through the incision at the umbilicus. An abdominal survey was undertaken. Two 8-mm trocars were inserted, one in the right upper quadrant and one in the left upper quadrant. During insertion of the Veress needle and all trocars, there appeared to have been no injury to the bowels, any intraperitoneal or OPERATIVE REPORT [id number] SVETLANABELLE retroperitoneal structures. There was some exudate in the left lower quadrant after I moved some of the omentum medially and moved some of the descending colon medially. This was aspirated. I then bluntly dissected down into the pelvis and some turbid fluid was identified there and this was aspirated. I irrigated in the pelvis. I irrigated in all quadrants. There appeared to have been some localized peritonitis down in the pelvis, but interestingly not in the left upper quadrant. Through the 8-mm trocar, I placed the right-sided drain down in the pelvis and the left-sided drain up along the left side wall, around the spleen, and then under the diaphragm. All the trocars were removed and the abdomen desufflated. Drains were sutured to skin with 2-0 nylons. The trocar site at the umbilicus was closed with interrupted 3-0 Vicryl Rapide sutures. The skin around the drains was closed with interrupted intracuticular 3-0 Vicryl. Sterile dressings were applied. The patient was then extubated and conveyed to the post-anesthesia care unit where he was in stable condition. TRANSINT:[id number] Voice Confirmation ID: [id number] DOCUMENT ID: [id number] SUKHWINDER FOSTER MD at 1704 CC: LUIS ENRIQUE FAITH [id number] DICTATION DATE: 03/20/19 1355 HOUSEHOLD MANAGER: 03/20/19 1503 ADM IN [place] [id number] [place] [address]
--- NOTE | 2019-03-22 19:15 | NUR ---
PATIENT SITTING UP IN BED WATCHNG TV. PATIENT STATES PAIN IS A 7/10 IN ABDOMEN. PATIENT HAS 2 CANDICE DRAINS FOR THE ABDOMENT, DRESSING C/D/I. ENCOURAGED PATIENT TO CALL WITH ANY NEEDS. BED IN LOW POSITION. CALL LIGHT AND BEDSIDE TABLE WITHIN REACH.
[2019-03-22 19:35] VITALS: BP 119/70
[2019-03-23 00:23] VITALS: BP 135/78
[2019-03-23 04:04] VITALS: BP 160/81
[2019-03-23 06:16] LABS: MAGNESIUM - SERUM 1.6 mg/dL (1.8-2.4)
[2019-03-23 06:18] LABS: PHOSPHOROUS 3.1 mg/dL (2.5-4.9)
[2019-03-23 07:00] VITALS: BP 143/82
[2019-03-23 08:30] LABS: CALC OSMOLALITY 282 mosm/kg (275-300); CARBON DIOXIDE 23.3 mmol/L (21.0-32.0); CHLORIDE - SERUM 110 mmol/L (98-107); CREATININE - SERUM 0.9 mg/dL (0.6-1.3); POTASSIUM - SERUM 3.9 mmol/L (3.5-5.1); SODIUM 142 mmol/L (136-145); UREA NITROGEN 16 mg/dL (7-18); eGFR NON AFRICAN AMERICAN 89 mL/min (90-120)
[2019-03-23 08:31] LABS: GLUCOSE 89 mg/dL (74-106)
[2019-03-23 08:42] LABS: HEMATOCRIT 36.2 % (42.0-54.0); HEMOGLOBIN 12.8 g/dL (13.5-17.5); MCH 31.4 pg (26.0-34.0); MCHC 35.4 g/dL (31.0-37.0); MCV 88.7 fL (80.0-100.0); MEAN PLATELET VOLUME 11.5 fL (7.4-10.4); RBC 4.08 10x6/uL (4.20-6.10); RDW 13.9 % (11.5-14.5); WBC 11.8 10x3/uL (4.8-10.8)
[2019-03-23 08:51] LABS: PLATELET COUNT 248 10x3/uL (130-400)
--- NOTE | 2019-03-23 09:59 | NUR ---
0700 AWAKE ALERT ORIENTED SITTING UP IN BED WITHOUT COMPLAINTS PLEASANT AND COOPERATIVE NS INFUSING AT 100ML/HR TO RIGHT IJ DRESSING INTACT CANDICE X II NOTED DSG INTACT AMBULATES TO BR WITHOUT ASSIST
[2019-03-23 10:09] LABS: EOSINOPHILS 1 % (0-7); LYMPHOCYTES 15 % (15-50); MONOCYTES 9 % (2-11); NEUTROPHILS 67 % (40-80)
[2019-03-23 10:13] LABS: ANISOCYTOSIS OCC; CRENATED CELLS OCC; PLATELET ESTIMATE NORMAL
[2019-03-23 11:00] VITALS: BP 125/81
--- NOTE | 2019-03-23 13:45 | NUR ---
Nutrition follow-up: TPN continues @ 40 ml/hr with lipids Q 48 hr Labs reviewed Diet advanced to GI bland and pt is tolerating per nursing RDN following.
--- NOTE | 2019-03-23 14:27 | NUR ---
Nutrition Follow-up: Diet: [place]/GI PO intake: none recorded since diet advancement. Pt states that he is tolerating GI [place] diet fine. Report good appetite and "eating good." Meds, labs, and skin assessment reviewed. Wt: 174# (03/22/19); admit 163# (03/16/19) +BM Continue current diet as tolerated. Oral nutrition supplement if PO intake <50%. RD Following
--- NOTE | 2019-03-23 15:40 | MORECARE ---
CASE MANAGEMENT DISCHARGE SUMMARY PATIENT: BELLE TENORIO UNIT: [id number] ADM DATE: 03/16/19 AGE: 68 : 51 SEX: M ROOM/BED: D.1202 AUTHOR: KAYLA FINCH PHYSICIAN: REFERRING PHYSICIAN: SUKHWINDER FOSTER MD DATE OF SERVICE: 03/23/19 Discharge Plan Patient Name: BELLE TENORIO Facility: [facility]:[place] : 1950 Planned Disposition: Home Anticipated Discharge Date: Discharge Date: Expected LOS: Initial Reviewer: [email or web address] Initial Review Date: 03/17/2019 Generated: 03/23/19 4:39 pm Comments DCP- Discharge Planning Updated by [email or web address]: Stephanie Schroeder on 03/23/19 2:[address] DC PLAN: Patient plan is to return home independently with no needs. CM visited with patient to discuss dc plans. His plan is to return home with no needs. He stated he is hopeful to discharge home tomorrow. DC IMM delivered, explained, signed by the patient, and placed in his chart. Signed form also left with patient. Stephanie Schrodeer RN, [facility] DCP- Discharge Planning Updated by [email or web address]: Thu Al on 03/17/19 3:[address] Patient Name: BELLE TENORIO Admission Status: ER Accout number: [id number] Admission Date: 03-16-2019 : 1950 Admission Diagnosis: Attending: SUKHWINDER FOSTER Current LOS: 1 Anticipated DC Date: Planned Disposition: Home Primary Insurance: MEDICARE A & B Discharge Planning Comments: CM met with patient at bedside after explaining CM role and obtaining verbal consent. CM discussed availability / needs of home health and medical equipment. Patient denies any discharge needs at this time. CM TO FOLLOW AND ASSIST. Door Worker: Thu Al DCP- Discharge Planning Updated by [email or web address]: Alma Ku on 03/16/19 11:[address] CM met with patient for DC planning needs. CM explained the purpose of interview, patient gives permission for spouse to speak with me Patient states he lives with his , Shellie Tenorio @[address] [place] [address]. Patient states he is independent with his care. PCP: Dr. Mara Weldon. [facility] DME: None. Emergency contact: Shellie Tenorio () [phone]. Community Resources: None. States he will not require additional services at this time. He feels safe discharging to his home. Denies being admitted to a hospital within past 30 days. Transportation at discharge will be patient's , Shellie #[phone]. CM will follow and assist with DC needs PRN. DCPIA - Discharge Planning Initial Assessment Updated by [email or web address]: Thu Al on 03/17/19 4:43 pm * Is the patient Alert and Oriented? Yes * PCP LAURYN * Pharmacy [facility] * Preadmission Environment Home with Family * ADLs Independent * Equipment None * Community resources currently utilized None * Additional services required to return to the preadmission environment? No * Can the patient safely return to the preadmission environment? Yes * Has this patient been hospitalized within the prior 30 days at any hospital? No Coverage Notice Reviewer: [email or web address] Moshe Ku Notice Issued Date-Time: 03/16/2019 11:25 Notice Type: Medicare Outpatient Observation Notice Notice Delivered To: Family Member Relationship to Patient: Spouse Baggage Agent Supervisor Name: Shellie Tenorio Delivery Method: HAND - Hand Delivered Nohemi Days: Prior Verbal Notification: Recipient Understood Notice: Recipient Signature: Med Rec Note Co-signed by Attending: Coverage Notice Comment: Patient request sign for him. Reviewer: [email or web address] Moshe Schroeder Notice Issued Date-Time: 03/23/2019 15:32 Notice Type: IM Discharge Notice Notice Delivered To: Patient Relationship to Patient: Baggage Agent Supervisor Name: Delivery Method: HAND - Hand Delivered Nohemi Days: Prior Verbal Notification: Recipient Understood Notice: Recipient Signature: Med Rec Note Co-signed by Attending: Coverage Notice Comment: Last DP export: 03/17/19 3:50 p Patient Name: BELLE TENORIO Page [phone] at 1540 All edits/amendments must be made on the electronic document DICTATION DATE: 03/23/191538 STERILE PROCESS TECH: ARIA 03/23/191538 RPT#: [id number] DC DATE: STATUS: ADM IN [facility] [address] [place] [address] END OF REPORT
[2019-03-23 16:00] VITALS: BP 130/77
--- NOTE | 2019-03-23 18:16 | NUR ---
1700 ABDOMINAL DRESSING CHANGED CANDICE X 2 DRAINED AND COMPRESSED
--- NOTE | 2019-03-23 18:16 | NUR ---
1300 APPETITE GOOD. DENIES ABD PAIN
--- NOTE | 2019-03-23 19:15 | NUR ---
PATIENT AAO. DENIES ANY PAIN OR CONCERNS AT THIS TIME. BREATHING IS UNLABORED AND EVEN. BED IN THE LOWEST POSITON AND CALL LIGHT IN REACH.
[2019-03-23 20:07] VITALS: BP 150/76
[2019-03-24 02:11] VITALS: BP 141/86
[2019-03-24 04:32] VITALS: BP 115/72
[2019-03-24 05:38] LABS: MAGNESIUM - SERUM 1.7 mg/dL (1.8-2.4); PHOSPHOROUS 3.8 mg/dL (2.5-4.9)
--- NOTE | 2019-03-24 06:42 | NUR ---
IN CONCUR WITH RECYCLING SORTER ASSESSMENT.
--- NOTE | 2019-03-24 07:10 | NUR ---
GOT REPORT FOR MANAGER PLUMBING NURSE, DID BED SIDE REPORT. AM ROUNDS- PT IS RESTING COMFORTABLY IN BED, INSPECTED IJ CENTRAL LINE AND BOTH CANDICE TUBES. ALL DRESSINGS ARE CLEAN DRY AND INTACT. PT DENIES ANY NEEDS AT THIS TIME. WILL CTM.
[2019-03-24 09:29] VITALS: BP 120/77
--- NOTE | 2019-03-24 09:30 | NUR ---
ASSESSED VITALS AT THIS TIME. TEMP 99 BP 120/77 P 79 R 18 O2 96% ROOM AIR ALERT AND ORIENTED X4 ADMINSITERED MORNING MEDICATION AT THIS TIME, NO TROUBLE SWALLOWING. DENIES ANY NEEDS. WILL CTM.
--- NOTE | 2019-03-24 14:55 | NUR ---
PT INQUIRED ABOUT WHEN HE WILL BE GOING HOME TODAY. EDUCATED PT THAT HE WILL BE HAVING A CT WITH CONTRAST TODAY. SO THERE IS A POSSIBILITY THAT HE WILL NOT BE GOING HOME TODAY.
--- NOTE | 2019-03-24 16:03 | NUR ---
PT VERY UNHAPPY ABOUT THE CT ORDERE BY DR. ROE. REFUSED IT AND TOLD NURSE HE WANTS TO GO HOME TODAY. NURSE CONTACTED DR. FOSTER AND HE SAID THAT THE CT WAS NOT NEEDED AND HE WOULD "BE DOWN SHORTLY TO REMOVE THE CANDICE TUBES AND SEND MR. MOTA OUT OF HERE." MESSAGE RELAYED TO PT. PT HAPPY WITH THIS RESULT. DENIES ANY OTHER NEEDS AT THIS TIME. AT BEDSIDE. WILL CTM.
--- NOTE | 2019-03-24 17:24 | NUR ---
HUNG NEW BAG OF IV FLUIDS. DENIES ANY NEEDS. FAMILY AT BEDSIDE. WILL CTM.
--- NOTE | 2019-03-24 18:27 | NUR ---
REMOVED BOTH OF PT CANDICE TUBES, TOLERATED WELL. 4X4 AND PRESSURE TAPE APPLIED TO BOTH SITES. RAMY ARTEAGA REMOVED RIGHT IJ CENTRAL LINE. TOLERATED WELL. PT FAMILY AT BEDSIDE. WAITING DISCHARGE PAPERWORK. DENIES ANY NEEDS. WILL CTM.
--- NOTE | 2019-03-25 08:19 | MORECARE ---
CASE MANAGEMENT DISCHARGE SUMMARY PATIENT: BELLE TENORIO UNIT: [id number] ADM DATE: 03/16/19 AGE: 68 : 51 SEX: M ROOM/BED: D.1202 AUTHOR: KAYLA FINCH PHYSICIAN: REFERRING PHYSICIAN: SUKHWINDER FOSTER MD DATE OF SERVICE: 03/25/19 Discharge Plan Patient Name: BELLE TENORIO Facility: [facility]:[place] : 1950 Planned Disposition: Home Anticipated Discharge Date: Discharge Date: 03/24/2019 Expected LOS: Initial Reviewer: [email or web address] Initial Review Date: 03/17/2019 Generated: 03/25/19 9:18 am Comments DCP- Discharge Planning Updated by [email or web address]: Stephanie Schroeder on 03/23/19 2:[address] DC PLAN: Patient plan is to return home independently with no needs. CM visited with patient to discuss dc plans. His plan is to return home with no needs. He stated he is hopeful to discharge home tomorrow. DC IMM delivered, explained, signed by the patient, and placed in his chart. Signed form also left with patient. Stephanie Schroeder RN, [facility] DCP- Discharge Planning Updated by [email or web address]: Thu Al on 03/17/19 3:[address] Patient Name: BELLE TENORIO Admission Status: ER Accout number: [id number] Admission Date: 03-16-2019 : 1950 Admission Diagnosis: Attending: SUKHWINDER FOSTER Current LOS: 1 Anticipated DC Date: Planned Disposition: Home Primary Insurance: MEDICARE A & B Discharge Planning Comments: CM met with patient at bedside after explaining CM role and obtaining verbal consent. CM discussed availability / needs of home health and medical equipment. Patient denies any discharge needs at this time. CM TO FOLLOW AND ASSIST. Wheat Farmer: Thu Al DCP- Discharge Planning Updated by [email or web address]: Alma Ku on 03/16/19 11:[address] CM met with patient for DC planning needs. CM explained the purpose of interview, patient gives permission for spouse to speak with me Patient states he lives with his , Shellie Tenorio @[address] [place] [address]. Patient states he is independent with his care. PCP: Dr. Mara Weldon. Pharmacy: [facility]. DME: None. Emergency contact: Shellie Tenorio () [phone]. Community Resources: None. States he will not require additional services at this time. He feels safe discharging to his home. Denies being admitted to a hospital within past 30 days. Transportation at discharge will be patient's , Shellie #[phone]. CM will follow and assist with DC needs PRN. DCPIA - Discharge Planning Initial Assessment Updated by [email or web address]: Thu Al on 03/17/19 4:43 pm * Is the patient Alert and Oriented? Yes * PCP LAURYN * Pharmacy [facility] * Preadmission Environment Home with Family * ADLs Independent * Equipment None * Community resources currently utilized None * Additional services required to return to the preadmission environment? No * Can the patient safely return to the preadmission environment? Yes * Has this patient been hospitalized within the prior 30 days at any hospital? No Coverage Notice Reviewer: [email or web address] Moshe Ku Notice Issued Date-Time: 03/16/2019 11:25 Notice Type: Medicare Outpatient Observation Notice Notice Delivered To: Family Member Relationship to Patient: Spouse Chapter Relations Administrator Name: Shellie Tenorio Delivery Method: HAND - Hand Delivered Nohemi Days: Prior Verbal Notification: Recipient Understood Notice: Recipient Signature: Med Rec Note Co-signed by Attending: Coverage Notice Comment: Patient request sign for him. Reviewer: [email or web address] Moshe Schroeder Notice Issued Date-Time: 03/23/2019 15:32 Notice Type: IM Discharge Notice Notice Delivered To: Patient Relationship to Patient: Chapter Relations Administrator Name: Delivery Method: HAND - Hand Delivered Nohemi Days: Prior Verbal Notification: Recipient Understood Notice: Recipient Signature: Med Rec Note Co-signed by Attending: Coverage Notice Comment: Last DP export: 03/23/19 2:40 p Patient Name: BELLE TENORIO Page [phone] at 0819 All edits/amendments must be made on the electronic document DICTATION DATE: 03/25/19817 CLINICAL SCIENCE CONSULTANT: ARIA 03/25/19817 RPT#: [id number] DC DATE:03/24/19 STATUS: DIS IN [place] [id number] [place] [address] END OF REPORT
--- NOTE | 2019-03-28 11:22 | DS ---
PATIENT:BELLE MOTA :[birth year] MEDICAL RECORD: [id number] DISCHARGE SUMMARY ADMISSION DATE: 03/16/19 DISCHARGE DATE: 03/24/19 PRINCIPAL DIAGNOSES: 1. Diverticular perforation with peritonitis. 2. History of colon polyp. 3. Hypertension. 4. History of myocardial infarction. 5. History of coronary artery disease. 6. History of colon polyps. 7. History of arthritis. 8. History of knee surgery. 9. History of back surgery. 10. History of foot surgery. 11. History of arm surgery. 12. History of jaw surgery. 13. History of CABG. 14. Hypomagnesemia. PROCEDURE: Laparoscopic lavage with placement of drains. HOSPITAL COURSE: The patient underwent colonoscopy. He had a lot of pain postprocedurally. Initial CT scan did not reveal any free air, but there was some fluid in the pelvis. He still is having good bit of pain, was watched in the hospital. A subsequent CT scan did reveal bubbles of air. His colonoscopy was pretty uneventful. He had significant diverticular disease. My theory is that the insufflation from the colonoscope actually caused a diverticular perforation. This would be consistent with the CT findings in that there was fluid in the pelvis on the initial CT scan. I think that was probably irrigation fluid from the colonoscopy. Anyhow, the patient underwent a laparoscopic lavage with placement of drains. His condition improved after that procedure. He is being dismissed home. He is currently afebrile. He is being dismissed home on Levaquin as well as Flagyl and [place]. He is to take MiraLax daily. He is to call if he has a fever above 102.0 degrees Fahrenheit or increasing abdominal pain. TRANSINT:[id number] Voice Confirmation ID: [id number] DOCUMENT ID: [id number] SUKHWINDER FOSTER MD at 1122 CC: [id number] DICTATION DATE: 03/24/191756 REHAB RN: 03/25/19 0825 DIS IN 03/24/19 [address] [place] [address]
== END 2019-03-24 20:00 | disposition home or self-care (01) | DRG 394 ==
LOC: D.ER 08:48 → D.MS 11:19 → OBSVTIME 11:57 → D.MS 18:47 → D.ICU 18:47 → D.M3 03-22 11:15
PROVIDERS: Emergency Medicine; Internal Medicine Nephrology; ADMIT Surgery; ATTEND Surgery
PROC: 05HM33Z Insertion of Infusion Device into Right Internal Jugular Vein, Percutaneous Approach (ICD-10-PCS; 2019-03-20)
PROC: 0W9G40Z Drainage of Peritoneal Cavity with Drainage Device, Percutaneous Endoscopic Approach (ICD-10-PCS; principal; 2019-03-20 07:03)
DX: K91.89 Other postprocedural complications and disorders of digestive system (principal); K57.20 Diverticulitis of large intestine with perforation and abscess without bleeding; E46 Unspecified protein-calorie malnutrition; N17.9 Acute kidney failure, unspecified; G89.18 Other acute postprocedural pain; I10 Essential (primary) hypertension; D64.9 Anemia, unspecified; E87.6 Hypokalemia; E83.42 Hypomagnesemia; Z86.010 Personal history of colon polyps

== ENCOUNTER → 2019-10-11 08:21 | Outpatient (CLI) | payer MEDICARE ==
[2019-03-17 12:51] VITALS: BMI 25.5
--- NOTE | 2019-10-13 08:47 | EC ---
PATIENT:BELLE MOTA DATE OF SERVICE: 10/11/19 SEX: M MEDICAL RECORD: [id number] DATE OF : [birth year] LOCATION:[facility] AGE OF PATIENT: 69 ADMISSION DATE: 10/11/19 REFERRING PHYSICIAN: INTERPRETING PHYSICIAN: ADRI BARRAGAN MD ECHOCARDIOGRAM REPORT ECHO CHARGES 4 ECHO COMPLETE Date: 10/11/19 CLINICAL DIAGNOSIS: MURMUR H/O HTN/CAD ECHOCARDIOGRAPHIC MEASUREMENTS (adult normal given) AC root (d.<3.7cm) 3.4 cm LV Septum d (<1.2 cm> 1.0 cm Valve Excursion 2.0 cm LV Septum (systole) 1.2 cm Left Atria (s.<4.0cm> 4.3 cm LVPW d(<1.2cm) 1.1 cm RV (d.<2.3cm) 2.0 cm LVPW (sytole) 1.5 cm LV diastole(<5.6CM) 4.4 cm MV E-F(>70mm/sec) cm LV systole 3.2 cm LVOT Diameter 2.0 cm MV exc.(>10mm) cm Est.ejection fraction (50-75%) % DOPPLER: LVIT cm/sec A 90.0 cm/sec E 43.0 cm/sec LA cm/sec RVSP 14.0 mmHg LVOT 100 cm/sec AOP1/2T m/s Asc. Ao 96.0 cm/sec RVOT 84.0 cm/sec RA cm/sec PA 106 cm/sec AV Gradient Peak 3.7 mmHg AV Mean 1.6 mmHg AV Area 4.9 cm MV Gradient Peak 3.3 mmHg MV Mean 1.2 mmHg MV Area cm COMMENTS: OP - HC Guest Service Team Leader: 1 ROSA DEYSI Director Quality Systems: 3 Dr. Wilkins TAPE# PACS Pericardial Effusion N DATE OF SERVICE: No LVH. LV internal dimension is normal. Wall motion is normal. EF is greater than or equal to 55%. Aortic valve is tricuspid. No evidence of stenosis by Doppler interrogation. Left atrium is mildly dilated at 4.3 cm. Mitral valve shows no prolapse. Trace MR. Right-sided chambers are grossly normal. Trace TR. TRANSINT:[id number] Voice Confirmation ID: [id number] DOCUMENT ID: [id number] ECHOCARDIOGRAM REPORT [id number] SVETLANA,ADRI CARPENTER MD at 0847 CC: [id number] DICTATION DATE: 10/12/19 1121 FOOD HANDLER: 10/12/19 1219 DEP CLI 10/11/19 [address] [id number] [place] [address]
== END | disposition home or self-care (01) ==
LOC: D.HCCECHO 08:21
PROVIDERS: ATTEND Internal Medicine Interventional Cardiology
DX: I25.10 Atherosclerotic heart disease of native coronary artery without angina pectoris (principal)

== ENCOUNTER → 2020-10-23 08:53 | Outpatient (CLI) | payer MEDICARE ==
[2019-03-17 12:51] VITALS: BMI 25.5
--- NOTE | 2020-10-24 08:06 | EC ---
PATIENT:BELLE MOTA DATE OF SERVICE: 10/23/20 SEX: M MEDICAL RECORD: [id number] DATE OF : [birth year] LOCATION:D.[facility] AGE OF PATIENT: 70 ADMISSION DATE: 10/23/20 REFERRING PHYSICIAN: INTERPRETING PHYSICIAN: ADRI BARRAGAN MD ECHOCARDIOGRAM REPORT ECHO CHARGES 4 ECHO COMPLETE Date: 10/23/20 CLINICAL DIAGNOSIS: HX OF CAD/CABG, ASSESS EF AND AORTIC VALVE ECHOCARDIOGRAPHIC MEASUREMENTS (adult normal given) AC root (d.<3.7cm) 4.0 cm LV Septum d (<1.2 cm> 1.5 cm Valve Excursion 1.8 cm LV Septum (systole) 1.7 cm Left Atria (s.<4.0cm> 3.3 cm LVPW d(<1.2cm) 1.3 cm RV (d.<2.3cm) 3.2 cm LVPW (sytole) 1.7 cm LV diastole(<5.6CM) 5.0 cm MV E-F(>70mm/sec) cm LV systole 3.6 cm LVOT Diameter 1.9 cm MV exc.(>10mm) 1.3 cm Est.ejection fraction (50-75%) % DOPPLER: LVIT cm/sec A 79.0 cm/sec E 50.0 cm/sec LA cm/sec RVSP 24 mmHg LVOT 90 cm/sec AOP1/2T m/s Asc. Ao 108 cm/sec RVOT 108 cm/sec RA cm/sec PA 131 cm/sec AV Gradient Peak 4.63 mmHg AV Mean 2.11 mmHg AV Area 2.5 cm MV Gradient Peak 2.61 mmHg MV Mean 1.15 mmHg MV Area cm COMMENTS: Junior Sales Assistant: 2 JR BANERJEE Cementer Hand: 3 Dr. Wilkins TAPE# PACS Pericardial Effusion N DATE OF SERVICE: Adequate 2D, color flow imaging, spectral Doppler, and M-Mode. FINDINGS: LVH is present. LV internal dimensions normal. Wall motion normal. EF is greater than or equal to 55%. Aortic valve is tricuspid. No evidence of stenosis by Doppler interrogation. Left atrium is normal at 3.3 cm. Mitral valve shows no prolapse. Trace MR. Right-sided chambers are grossly normal. Trace TR. ECHOCARDIOGRAM REPORT [id number] BELLE MOTA TRANSINT:[id number] Voice Confirmation ID: [id number] DOCUMENT ID: [id number] ADRI BARRAGAN MD at 0806 CC: [id number] DICTATION DATE: 10/23/20 160 BELT MACHINE OPERATOR: 10/23/20 2251 DEP CLI 10/23/20 [place] [id number] [place] [id number]
== END | disposition home or self-care (01) ==
LOC: D.HCCECHO 08:53
PROVIDERS: ATTEND Internal Medicine Interventional Cardiology
DX: I25.10 Atherosclerotic heart disease of native coronary artery without angina pectoris (principal)